=== PATIENT | male | born 1955 | race Caucasian/White ===

== ENCOUNTER → 2024-09-21 10:54 | Outpatient (REF) | payer MEDICARE, OTHER, SELFPAY | LOC: HWRAD 10:54 | PROVIDERS: ATTENDING PHYSICIAN Otolaryngology; FAMILY PHYSICIAN Emergency Medicine | DX: J33.0 Polyp of nasal cavity (principal); R51.9 Headache, unspecified | CPT/HCPCS: 70486 ==